=== PATIENT | female | born 1970 | race Caucasian/White ===

== ENCOUNTER 2017-09-18 18:52 | Day surgery (SDC) | payer MEDICAID ==
[2017-09-18 19:17] VITALS: TEMP 98.5; O2SAT 99
--- NOTE | 2017-09-18 20:05 | ED PDOC ---
Arrival/HPI - General Chief Complaint: Respiratory Distress Time Seen by Provider: 09/18/17 19:14 Historian: Patient - History of Present Illness Narrative History of Present Illness (Text): 09/18/17 20:02 46 year old female presents to the Emergency department complaining of a sensation of a foreign body stuck in her throat. Patient states that while she was eating, she choked on a chicken bone and still feels it in her throat. Patient claims she is unable to breath properly. Patient denies any fever, chills, chest pain, nausea, vomiting, diarrhea, urinary symptoms, back pain, neck pain, headache, dizziness, or any other complaints. Time/Duration: Prior to Arrival Symptom Onset: Sudden Symptom Course: Unchanged Context: Home Past Medical History - Provider Review Nursing Documentation Reviewed: Yes - Infectious Disease Hx of Infectious Diseases: None - Psychiatric Hx Substance Use: No Family/Social History - Physician Review Nursing Documentation Reviewed: Yes Family/Social History: Unknown Family HX Smoking Status: Never Smoked Hx Alcohol Use: No Hx Substance Use: No Allergies/Home Meds Allergies/Adverse Reactions: Allergies No Known Allergies Allergy (Verified 09/18/17 18:58) Home Medications: Home Meds Medication Instructions Recorded Confirmed No Known Home Med 09/18/17 09/18/17 Review of Systems - Review of Systems Constitutional: absent: Fevers, Night Sweats Respiratory: SOB (secondary to the sensation of a foreign body in throat) Cardiovascular: absent: Chest Pain Gastrointestinal: absent: Diarrhea, Nausea, Vomiting Genitourinary Female: absent: Dysuria, Frequency Musculoskeletal: absent: Back Pain, Neck Pain Neurological: absent: Headache, Dizziness Physical Exam Vital Signs Reviewed: Yes Vital Signs Temp Pulse Resp BP Pulse Ox 09/19/17 00:33 98.5 F 80 16 131/86 99 09/19/17 00:18 98.5 F 78 16 149/81 99 09/18/17 23:31 90 16 133/87 99 09/18/17 23:30 98.1 F 90 16 133/87 98 09/18/17 21:25 88 20 144/90 98 09/18/17 19:20 16 09/18/17 19:13 98.5 F 87 20 150/98 H 99 Temperature: Afebrile Blood Pressure: Hypertensive Pulse: Regular Respiratory Rate: Normal Appearance: Positive for: Well-Appearing, Non-Toxic, Comfortable Pain Distress: None Mental Status: Positive for: Alert and Oriented X 3 - Systems Exam Head: Present: Atraumatic, Normocephalic Pupils: Present: PERRL Extroacular Muscles: Present: EOMI Conjunctiva: Present: Normal Mouth: Present: Moist Mucous Membranes Neck: Present: Normal Range of Motion Respiratory/Chest: Present: Clear to Auscultation, Good Air Exchange. No: Respiratory Distress, Accessory Muscle Use Cardiovascular: Present: Regular Rate and Rhythm, Normal S1, S2. No: Murmurs Abdomen: No: Tenderness, Distention, Peritoneal Signs Back: Present: Normal Inspection Upper Extremity: Present: Normal Inspection. No: Cyanosis, Edema Lower Extremity: Present: Normal Inspection. No: Edema Neurological: Present: GCS=15, CN II-XII Intact, Speech Normal Skin: Present: Warm, Dry, Normal Color. No: Rashes Psychiatric: Present: Alert, Oriented x 3, Normal Insight, Normal Concentration Medical Decision Making ED Course and Treatment: 09/18/17 20:03 Impression: 46 year old female presents to the Emergency department complaining of a sensation of a chicken bone stuck in her throat. Plan: -- CT scan of neck soft tissue -- Urine test -- Reassess and disposition Progress Notes: 09/18/17 20:05 Patient states she is having trouble breathing, secondary to the sensation of a chicken bone in her throat; however, her pulse ox is 99. CT Neck Without Intravenous Contrast Dictated and Authenticated by: Ryan Yu MD 09/18/2017 9:22 PM Eastern Time ([place] & [place]) IMPRESSION: 1. Foreign body within hypopharynx. 2. Incidental/non-acute findings are described above. 09/18/17 22:13: Case discussed in detail with Dr. Richards,who requests patient be transferred to the same day surgery unit for the removal of the foreign body from her throat. - Lab Interpretations Lab Results: 09/18/17 22:31 09/18/17 22:31 Lab Results 09/18/17 22:31: Sodium 146, Potassium 3.9, Chloride 104, Carbon Dioxide 29, Anion Gap 17, BUN 10, Creatinine 0.6 L, Est GFR ( Amer) > 60, Est GFR ( Non-Af Amer) > 60, Random Glucose 103, Calcium 9.6, Total Bilirubin 0.1 L, AST 23, ALT 31, Alkaline Phosphatase 81, Total Protein 8.2, Albumin 4.6, Globulin 3.5, Albumin/Globulin Ratio 1.3 09/18/17 22:31: PT 11.4, INR 1.00, APTT 31.8 09/18/17 22:31: WBC 4.4 L, RBC 4.13, Hgb 11.3 L, Hct 33.9 L, MCV 82.1, MCH 27.4 , MCHC 33.3, RDW 12.8, Plt Count 267, MPV 9.6, Gran % 50.5, Lymph % (Auto) 40.1 H, [place] % (Auto) 5.3, Eos % (Auto) 3.9, Baso % (Auto) 0.2, Gran # 2.20, Lymph # (Auto) 1.8, [place] # (Auto) 0.2, Eos # (Auto) 0.2, Baso # (Auto) 0.01 I have reviewed the lab results: Yes - RAD Interpretation Narrative RAD Interpretations (Text): 09/18/2017 21:22 CT Neck Without Intravenous Contrast FINDINGS: Limitations: Lack of intravenous contrast. Oropharynx: Unremarkable. No significant tonsillar enlargement. Hypopharynx: 4.0 x 0.4 x 0.2 cm horizontally oriented radiopaque foreign body within hypopharynx. Larynx: Unremarkable. Normal epiglottis. Trachea: Unremarkable. Retropharyngeal space: Unremarkable. Submandibular/parotid glands: Unremarkable. Glands are normal in size. Thyroid: Unremarkable. No enlarged or calcified nodules. Bones/joints: Mild degenerative changes of cervical spine. No acute fracture. Soft tissues: Unremarkable. Vasculature: No acute findings. Lymph nodes: No pathologically enlarged lymph nodes. Sinuses: No acute sinusitis. Mastoid air cells: No mastoid effusion. Orbits: Unremarkable as visualized. Esophagus: Tiny focus of air along proximal esophagus, likely diverticulum. Lung apices: Unremarkable as visualized. IMPRESSION: 1. Foreign body within hypopharynx. 2. Incidental/non-acute findings are described above. Radiology Orders: 09/18/17 19:21 NECK SOFT TISSUE W/O CONTRAST [CT] Stat 09/18/17 21:51 CHEST PORTABLE [RAD] Stat - Medication Orders Current Medication Orders: Ibuprofen (Motrin Tab) 400 mg PO Q6H PRN PRN Reason: Pain, Mild (1-3) Metoclopramide HCl (Reglan) 10 mg IV ONCE PRN PRN Reason: Nausea/Vomiting Ondansetron HCl (Zofran Inj) 4 mg IVP Q6 PRN PRN Reason: Nausea/Vomiting Pantoprazole Sodium (Protonix Ec Tab) 40 mg PO 0600 [facility] Last Admin: 09/19/17 05:20 Dose: 40 mg Discontinued Medications Lactated Ringer's (Lactated Ringer's) 1,000 mls @ 75 mls/hr IV .[id number] ADDISON Stop: 09/19/17 02:31 Last Admin: 09/19/17 05:20 Dose: 75 mls/hr eMAR Start Stop Document 09/19/17 05:20 SG (Rec: 09/19/17 05:21 SG [id number]) Intravenous Solution Start Date 09/19/17 Start Time 01:10 - Scribe Statement The provider has reviewed the documentation as recorded by the Nanda Pearl Provider Scribe Attestation: All medical record entries made by the Farheenibesperanza were at my direction and personally dictated by me. I have reviewed the chart and agree that the record accurately reflects my personal performance of the history, physical exam, medical decision making, and the department course for this patient. I have also personally directed, reviewed, and agree with the discharge instructions and disposition. Disposition/Present on Arrival - Present on Arrival Any Indicators Present on Arrival: No History of DVT/PE: No History of Uncontrolled Diabetes: No Urinary Catheter: No History of Decub. Ulcer: No History Surgical Site Infection Following: None - Disposition Have Diagnosis and Disposition been Completed?: Yes Diagnosis: Foreign body in pharynx Disposition: HOSPITALIZED Disposition Time: 23:15 Condition: FAIR
--- NOTE | 2017-09-18 21:22 | CT ---
EXAM: CT Neck Without Intravenous Contrast CLINICAL HISTORY: 46 years old, female; Pain; Throat pain; Additional info: R/O fb TECHNIQUE: Axial computed tomography images of the neck without intravenous contrast. All CT scans at this facility use one or more dose reduction techniques, viz.: automated exposure control; ma/kV adjustment per patient size (including targeted exams where dose is matched to indication; i.e. head); or iterative reconstruction technique. Coronal and sagittal reformatted images were created and reviewed. COMPARISON: No relevant prior studies available. FINDINGS: Limitations: Lack of intravenous contrast. Oropharynx: Unremarkable. No significant tonsillar enlargement. Hypopharynx: 4.0 x 0.4 x 0.2 cm horizontally oriented radiopaque foreign body within hypopharynx. Larynx: Unremarkable. Normal epiglottis. Trachea: Unremarkable. Retropharyngeal space: Unremarkable. Submandibular/parotid glands: Unremarkable. Glands are normal in size. Thyroid: Unremarkable. No enlarged or calcified nodules. Bones/joints: Mild degenerative changes of cervical spine. No acute fracture. Soft tissues: Unremarkable. Vasculature: No acute findings. Lymph nodes: No pathologically enlarged lymph nodes. Sinuses: No acute sinusitis. Mastoid air cells: No mastoid effusion. Orbits: Unremarkable as visualized. Esophagus: Tiny focus of air along proximal esophagus, likely diverticulum. Lung apices: Unremarkable as visualized. IMPRESSION: 1. Foreign body within hypopharynx. 2. Incidental/non-acute findings are described above.
--- NOTE | 2017-09-18 22:31 | CP.PCM.CON ---
History of Present Illness - History of Present Illness History of Present Illness: ENT Surgery Consult Note for Dr. Richards Reason for consult: foreign body in hypopharynx 46F with no significant PMH presents to [facility] for complaint of foreign body stuck in throat. Patient was seen and evaluated in the ED. Son was at bedside and supplemented history. Son states that the patient was eating chicken 30 min before arrival when she got a bone stuck in her throat. Patient vomited multiple times to try to get the bone out but was unsuccessful. Patient still felt like something was stuck so she decided to go to ED. Soft tissue was done while in ED and confirmed presence of horizontal foreign body. Admits to dyphagia and odynophagia. Denies fever/chills, cp, SOB, abdominal pain, diarrhea. PMH: denies Meds: denies Allergy: NKDA PSH: HOPE FH: denies Social: denies tobacco/etoh/illicit drug use, lives with son and Review of Systems - Review of Systems All systems: reviewed and no additional remarkable complaints except (as per HPI ) Past Patient History - Infectious Disease Hx of Infectious Diseases: None - Past Social History Smoking Status: Never Smoked - PSYCHIATRIC Hx Substance Use: No - SURGICAL HISTORY Hx Surgeries: No Meds Allergies/Adverse Reactions: Allergies Allergy/AdvReac Type Severity Reaction Status Date / Time No Known Allergies Allergy Verified 09/18/17 18:58 Physical Exam - Constitutional Appears: Other (Uncomfortable) - Head Exam Head Exam: ATRAUMATIC, NORMOCEPHALIC - Eye Exam Eye Exam: EOMI, Normal appearance Pupil Exam: PERRL - ENT Exam ENT Exam: Mucous Membranes Moist Additional comments: no foreign body seen on exam in pharynx - Neck Exam Neck exam: Positive for: Tenderness (anterior) - Respiratory Exam Respiratory Exam: Clear to Auscultation Bilateral, NORMAL BREATHING PATTERN - Cardiovascular Exam Cardiovascular Exam: REGULAR RHYTHM, +S1, +S2 - GI/Abdominal Exam GI & Abdominal Exam: Normal Bowel Sounds, Soft. absent: Distended, Guarding, Rebound, Rigid, Tenderness - Extremities Exam Extremities exam: Positive for: normal capillary refill, pedal pulses present. Negative for: calf tenderness - Back Exam Back exam: absent: CVA tenderness (L), CVA tenderness (R) - Neurological Exam Neurological exam: Alert, CN II-XII Intact, Oriented x3 - Psychiatric Exam Psychiatric exam: Normal Affect, Normal Mood - Skin Skin Exam: Dry, Intact, Normal Color, Warm Results - Vital Signs Recent Vital Signs: Last Vital Signs Temp 98.5 F 09/18/17 19:13 Pulse 87 09/18/17 19:13 Resp 20 09/18/17 19:13 BP 150/98 H 09/18/17 19:13 Pulse Ox 99 09/18/17 19:13 Assessment & Plan - Assessment and Plan (Free Text) Assessment: 46 F with foreign body in hypopharynx confirmed by CT Plan: -Patient going to OR for extraction -pre op work up -Discussed with Dr. Susie Syed PGY1
[2017-09-18 22:40] LABS: BASO # 0.01 K/mm3 (0.0-2.0); BASO % 0.2 % (0.0-3.0); EOS # 0.2 (0.0-0.7); EOS % 3.9 % (1.5-5.0); GRAN # 2.2 (1.4-6.5); GRAN % 50.5 % (50.0-68.0); HEMOGLOBIN 11.3 g/dL (12.0-16.0); LYMPH # 1.8 (1.2-3.4); LYMPH % 40.1 % (22.0-35.0); MEAN CELL VOLUME 82.1 fl (80.0-105.0); MEAN CORPUSCULAR HEMOGLOBIN 27.4 pg (25.0-35.0); MEAN CORPUSCULAR HGB CONC 33.3 g/dl (31.0-37.0); MEAN PLATELET VOLUME 9.6 fl (7.0-11.0); MONO # 0.2 (0.1-0.6); MONO % 5.3 % (1.0-6.0); RBC 4.13 10^6/uL (3.5-6.1); RED CELL DISTRIBUTION WIDTH 12.8 % (11.5-14.5); WHITE BLOOD COUNT 4.4 10^3/ul (4.5-11.0)
[2017-09-18 22:48] LABS: PARTIAL THROMBOPLASTIN TIME 31.8 Seconds (25.1-36.5); PROTHROMBIN TIME 11.4 SECONDS (9.4-12.5)
[2017-09-18 22:50] LABS: ALB/GLOB RATIO 1.3 (1.1-1.8); ALBUMIN 4.6 g/dL (3.0-4.8); ALT/SGPT 31 U/L (7-56); AST/SGOT 23 U/L (14-36); BLOOD UREA NITROGEN 10 mg/dL (7-21); CALCIUM 9.6 mg/dL (8.4-10.5); GFR AFRICAN-AMERICAN > 60; GFR NON-AFRICAN AMERICAN > 60
[2017-09-18 23:22] VITALS: RESP 16
[2017-09-18] MEDS ORDERED: Etomidate 20 mg/10ml Inj IV ONE (23:29)
[2017-09-18] MEDS ORDERED: Midazolam 2 MG/2 ML VIAL ONE (23:30)
[2017-09-18] MEDS ORDERED: Ketamine 10 mg/ml Inj (20 ml) ONE (23:31)
[2017-09-18] MEDS ORDERED: Propofol 10 mg/ml Inj (20 ML) ONE (23:46)
[2017-09-18] MEDS ORDERED: Succinylcholine 200 mg/10 ml Inj IV ONE (23:49)
[2017-09-19] MEDS ORDERED: Lactated Ringer's 1,000 ML IV SCH (00:30)
[2017-09-19 00:36] VITALS: BP 131/86; PULSE 80
[2017-09-19] MEDS ORDERED: Pantoprazole 40 mg EC Tab PO SCH (06:00)
--- NOTE | 2017-09-19 07:42 | CP.PCM.PCO ---
Physician Communication Note - Physician Communication Note Physician Communication Note: Pt extended recovery. SHe is clear for discharge. Order is in.
--- NOTE | 2017-09-19 08:25 | RAD ---
HISTORY: Choking COMPARISON: No prior. FINDINGS: LUNGS: No active pulmonary disease. PLEURA: No significant pleural effusion identified, no pneumothorax apparent. CARDIOVASCULAR: Normal. OSSEOUS STRUCTURES: No significant abnormalities. VISUALIZED UPPER ABDOMEN: Normal. OTHER FINDINGS: None. IMPRESSION: No active disease.
--- NOTE | 2017-09-25 06:12 | OP ---
PROCEDURE DATE: 09/18/2017 PREOPERATIVE DIAGNOSIS: Foreign body of the larynx. POSTOPERATIVE DIAGNOSIS: Foreign body of the larynx. PROCEDURE: Direct laryngoscope with removal of foreign body. SURGEON: Mario Richards DO ANESTHESIA: General via endotracheal tube. ANESTHESIOLOGIST: James Servin MD COMPLICATIONS: None. FINDINGS: An approximately 2-inch chicken bone within the larynx. INDICATION OF THE SURGERY: As follows, this is a 46-year-old female who presented to the emergency room earlier that evening complaining of a foreign body sensation in her throat after eating chicken. Patient had a CT scan which showed a foreign body within the larynx. ENT was consulted for removal of the foreign body. A direct fiberoptic laryngoscopy was then performed under local, down in the emergency room and a foreign body was then confirmed to be noted above the glottis. Patient was brought to the operative room for removal of foreign body after consent was obtained. DESCRIPTION OF OPERATION: As follows. The patient was brought to the operating room, placed under general endotracheal anesthesia, intubated with a #[address] Servin. Once under anesthesia, a plastic teeth guard was then placed over the upper gums. The patient was then prepped and draped in the usual sterile fashion. With use of the laryngoscope, the oral cavity was then examined. The hard palate and soft palate were noted to be within normal limits. Lateral pharyngeal wall was noted to be within normal limits. The vallecula was noted to be within normal limits. The epiglottis was noted to be within normal limits. The supraglottis was then examined and a foreign body was then noted. This was then grasped using the straight forceps and then removed atraumatically. The remainder of the examination was then completed. The pyriform sinuses were noted to be within normal limits bilaterally. The postcricoid region was noted to be within normal limits. The vocal cords were within normal limits without any lesions. The patient was then observed for any bleeding; none was noted. The patient was then extubated in the operating room, then transferred to recovery room in a stable satisfactory condition after completing the operation without any complications. Mario Richards DO [facility] # [id number]
== END 2017-09-19 08:11 | disposition home or self-care (01) ==
LOC: ED 18:52 → MERGE 09-19 01:16 → 3RSO 09-19 01:16 → SDS 09-19 01:16
PROVIDERS: ATTEND Otolaryngology Plastic Surgery within the Head & Neck
DX: T17.328A Food in larynx causing other injury, initial encounter (principal)
CPT/HCPCS: 31530; 70490; 71045; 80053; 85025; 85610; 85730; 88300; 99285; J0330; J0690; J1100; J1885; J2250; J2405; J2704; J3010; J7030; J7120

== ENCOUNTER 2018-01-10 14:37 | Emergency (ER) | payer MEDICAID ==
--- NOTE | 2018-01-10 15:19 | ED PDOC ---
Arrival/HPI - General Chief Complaint: Finger,Hand,&Wrist Time Seen by Provider: 01/10/18 15:04 Historian: Patient - History of Present Illness Narrative History of Present Illness (Text): 01/10/18 15:13 47 y/o female with no significant PMH who presents to the ED c/o left wrist pain s/p mechanical fall 1 hour ago. Pt reportedly slipped on water in her kitchen and fell on outstreched hands, causing immediate pain to her left dorsal lateral wrist. Pain is 8/10, exacerbated by movement of L wrist. She iced the area but has not taken any pain medication. Pt is not on blood thinners. Pt denies head injury, LOC, finger paresthesias or numbness, neck pain , back pain, elbow pain, shoulder pain. NKDA Symptom Onset: Sudden Quality: Stabbing, Throbbing Severity Level: 8 Past Medical History - Provider Review Nursing Documentation Reviewed: Yes - Infectious Disease Hx of Infectious Diseases: None - Cardiac Hx Cardiac Disorders: No - Pulmonary Hx Respiratory Disorders: No - Neurological Hx Neurological Disorder: No - HEENT Hx HEENT Disorder: No - Renal Hx Renal Disorder: No - Endocrine/Metabolic Hx Endocrine Disorders: No - Hematological/Oncological Hx Blood Disorders: No - Integumentary Hx Dermatological Disorder: No - Musculoskeletal/Rheumatological Hx Musculoskeletal Disorders: No - Gastrointestinal Hx Gastrointestinal Disorders: No - Genitourinary/Gynecological Hx Genitourinary Disorders: No - Psychiatric Hx Psychophysiologic Disorder: No Hx Substance Use: No - Surgical History Hx Hysterectomy: Yes Family/Social History - Physician Review Nursing Documentation Reviewed: Yes Family/Social History: No Known Family HX Smoking Status: Never Smoked Hx Alcohol Use: No Hx Substance Use: No Allergies/Home Meds Allergies/Adverse Reactions: Allergies No Known Allergies Allergy (Verified 01/10/18 15:01) Review of Systems - Physician Review All systems were reviewed & negative as marked: Yes - Review of Systems Constitutional: Normal Eyes: Normal. absent: Vision Changes Respiratory: Normal. absent: SOB Cardiovascular: Normal. absent: Chest Pain, Palpitations, Syncope Musculoskeletal: Arthralgias (left wrist s/p fall), Joint Swelling (left wrist s /p fall). absent: Back Pain, Neck Pain Skin: Other (erythema, ecchymosis left wrist ) Neurological: absent: Other (paresthesias, numbness) Physical Exam Vital Signs Reviewed: Yes Vital Signs Temp Pulse Resp BP Pulse Ox 01/10/18 16:58 98.1 F 82 18 121/78 100 01/10/18 15:01 98.5 F 74 16 119/80 98 Temperature: Afebrile Blood Pressure: Normal Pulse: Regular Respiratory Rate: Normal Appearance: Positive for: Well-Appearing, Non-Toxic, Comfortable Pain Distress: Moderate Mental Status: Positive for: Alert and Oriented X 3 - Systems Exam Head: Present: Atraumatic, Normocephalic. No: Tenderness, Contusion, Swelling, Ecchymosis, Abrasion, Laceration Pupils: Present: PERRL Neck: Present: Normal Range of Motion. No: MIDLINE TENDERNESS, Paraspinal Tenderness Respiratory/Chest: Present: Clear to Auscultation, Good Air Exchange. No: Respiratory Distress, Accessory Muscle Use Cardiovascular: Present: Regular Rate and Rhythm, Normal S1, S2. No: Murmurs Back: Present: Normal Inspection. No: Midline Tenderness, Paraspinal Tenderness Upper Extremity: Present: NORMAL PULSES (2/2 left radial pulse), Tenderness ( tenderness over lateral wrist, base of left 1st metacarpal and lateral distal forearm), Swelling (left wrist), Erythema (erythema present over lateral left wrist and forearm. ecchymosis present at base of left 1st metacarpal.), Neurovascularly Intact, Capillary Refill < 2s. No: Cyanosis, Normal ROM ( decreased ROM of L wrist secondary to pain. FROM of all fingers, elbow, shoulder.), Temperature Abnormalties, Deformity, Other (no snuffbox tenderness) Neurological: Present: GCS=15, Speech Normal, Motor Func Grossly Intact, Normal Sensory Function Skin: Present: Warm, Dry. No: Rashes, Laceration, Abrasion Psychiatric: Present: Alert, Oriented x 3, Normal Insight, Normal Concentration Medical Decision Making ED Course and Treatment: 01/10/18 15:46 47 y/o female with who presents to the ED c/o left wrist pain s/p mechanical fall 1 hour ago. Pt reportedly slipped on water in her kitchen and fell on outstreched hands, causing immediate pain to her L wrist. She iced the area but has not taken any pain medication. Pt not on blood thinners. Pt denies head injury, LOC, paresthesias or numbness, elbow pain, shoulder pain. Physical exam reveals tenderness, swelling, and erythema of L wrist. Ecchymosis at base of L dorsal 1st metacarpal. No palpable deformity, no snuffbox tenderness. 2/2 L radial pulse. Full sensation and motor function of fingers. Will xray L wrist Will give 30mg IM Toradol for pain Will splint L wrist with volar and thumb spica wrist splint with sling. Case discussed with Dr. Polanco who agrees with plan 01/10/18 15:57 Reassessed patient. Improved pain score to 5/10. Will give pt prescription for 600mg ibuprofen to take q4-6h as needed for pain 01/10/18 17:07 Splinted pts left wrist with a volar and thumb spica splint after discussion with Meghann Joseph PA-C Pt given L arm sling Impression: L wrist fracture Plan: Followup with orthopedic doctor (bone doctor) in 2 days Followup with primary doctor in 2 days Keep injured in splint until you followup with orthopedics Ice and elevate the injured area Avoid strenuous activity and heavy lifting Take ibuprofen 600mg every 4-6hours as needed for pain Return to the ED if symptoms worsen or persist Plan discussed with pt who understands and agrees. Pt is comfortable with discharge home and will followup with orthopedist as soon as possible. 01/10/18 17:50 Radiologist report arrived after pt discharged. No change in plan. Left wrist xray: FINDINGS: BONES: Normal. No fracture. JOINTS: Normal. No dislocation. SOFT TISSUES: Normal. OTHER FINDINGS: None. IMPRESSION: Normal left wrist radiographs. Re-evaluation Time: 06:45 Reassessment Condition: Improving,but remains with symptoms - RAD Interpretation Radiology Orders: 01/10/18 15:30 WRIST, LEFT 3 VIEWS [RAD] Stat Mirror Installer: Radiologist - Medication Orders Current Medication Orders: Discontinued Medications Ketorolac Tromethamine (Toradol) 30 mg IM STAT STA Stop: 01/10/18 15:32 Last Admin: 01/10/18 15:41 Dose: Not Given Disposition/Present on Arrival - Present on Arrival Any Indicators Present on Arrival: No History of DVT/PE: No History of Uncontrolled Diabetes: No Urinary Catheter: No History of Decub. Ulcer: No History Surgical Site Infection Following: None - Disposition Have Diagnosis and Disposition been Completed?: Yes Diagnosis: Wrist fracture, left Disposition: HOME/ ROUTINE Disposition Time: 16:24 Patient Plan: Discharge Patient Problems: Current Active Problems Problem Status Onset Wrist fracture, left Acute Condition: IMPROVED Discharge Instructions (ExitCare): Wrist Fracture (DC) Additional Instructions: Followup with orthopedic doctor (bone doctor) in 2 days Followup with primary doctor in 2 days Keep injured in splint until you followup with orthopedics Ice and elevate the injured area Avoid strenuous activity and heavy lifting Take ibuprofen 600mg every 4-6hours as needed for pain Return to the ED if symptoms worsen or persist Prescriptions: Ibuprofen [Motrin Tab] 600 mg PO QID PRN #30 tab PRN Reason: Pain, Moderate (4-7) Referrals: [facility] [place] [Outside] - Follow up with primary Shar Christian MD [Primary Care Provider] - Follow up with primary Bogdan Parra MD [Staff Provider] - Follow up with primary Forms: [employer] (Belarusian), WORK NOTE
--- NOTE | 2018-01-10 16:33 | RAD ---
Date of service: 01/10/2018 PROCEDURE: Left Wrist Radiographs. HISTORY: left wrist pain, FOOSH COMPARISON: None. FINDINGS: BONES: Normal. No fracture. JOINTS: Normal. No dislocation. SOFT TISSUES: Normal. OTHER FINDINGS: None. IMPRESSION: Normal left wrist radiographs.
[2018-01-10 16:59] VITALS: BP 121/78; PULSE 82; RESP 18; TEMP 98.1; O2SAT 100
== END 2018-01-10 17:08 | disposition home or self-care (01) ==
LOC: ED 14:37
DX: S62.102A Fracture of unspecified carpal bone, left wrist, initial encounter for closed fracture (principal); W01.0XXA Fall on same level from slipping, tripping and stumbling without subsequent striking against object, initial encounter; Y92.000 Kitchen of unspecified non-institutional (private) residence as the place of occurrence of the external cause
CPT/HCPCS: 73110; 99284; J1885